=== PATIENT | female | born 1975 | race Caucasian/White ===

== ENCOUNTER 2018-07-03 13:53 | Emergency (ER) | payer BC ==
--- OUTSIDE RECORDS SUMMARY | 2018-07-03 13:55 | XMS REPORT | Continuity of Care Document ---
:1975 Author Organization Interface Problems Problem Status Onset Date Classification Date Comments Source Reported Medications Medication Details Route Status Patient Ordering Order Source Instructions Provider Date Allergies, Adverse Reactions, Alerts Substance Category Reaction Severity Reaction Status Date Comments Source type Reported Immunizations Immunization Date Given Site Status Last Updated Comments Source Results Order Results Value Reference Date Interpretation Comments Source Name Range Vital Signs Vital Sign Value Date Comments Source Encounters Location Location Encounter Encounter Reason Attending ADM DC Status Source Details Type Number For Provider Date Date Visit Outpatient [id number] [facility] 01/21 [facility] [place] Outpatient [id number] [place] 02/24 [facility] [place] Outpatient [id number] [place] 03/11 [facility] [place] Outpatient [id number] [place] 04/08 [facility] [place] Outpatient [id number] [place] 08/27 [facility] [place] Procedures Procedure Code Date Perfomer Comments Source
[2018-07-03 14:52] LABS: Urine Blood 2+ (NEG); Urine Glucose NEGATIVE (NEG); Urine Protein NEGATIVE (NEG); Urine Specific Gravity 1.025 (1.005-1.030); Urine pH 5.5 (5.0-7.0)
[2018-07-03 14:54] LABS: Absolute Lymphocytes (CBC) 2.7 K/uL (0.7-4.9); Absolute Monocytes 0.6 K/uL (0.1-1.3); Basophils % 1.1 % (0-1.3); Eosinophils % 5.4 % (0-4.4); Hematocrit 33.7 % (36.0-45.0); Lymphocytes % 27.1 % (15.3-44.8); MPV 8.4 fL (7.6-11.3); Monocytes % 5.6 % (3.3-12.3); RBC Red Blood Cell Count 4.27 M/uL (3.86-4.86)
[2018-07-03 15:01] LABS: Urine Amorphous Sediment TRACE /HPF (NONE SEEN); Urine Bacteria <20 /HPF (<20); Urine Culture Reflex Order NOT NEEDED; Urine RBC NONE SEEN /HPF (NONE SEEN)
[2018-07-03] MEDS ORDERED: FENTANYL CITR 100 MCG/2 ML ONE (15:03)
[2018-07-03 15:12] LABS: Albumin 3.9 g/dL (3.4-5.0); Bilirubin Total 0.3 mg/dL (0.2-1.0); Potassium 3.7 mmol/L (3.5-5.1); Protein, Total 7.9 g/dL (6.4-8.2)
--- NOTE | 2018-07-03 15:23 | RAD REPORT ---
EXAM DESCRIPTION: CT - Stone Protocol - 07/03/2018 3:08 pm CLINICAL HISTORY: Flank pain. FLANK PAIN COMPARISON: No comparisons TECHNIQUE: Axial images were obtained without oral or IV contrast. Lack of contrast limits solid org an and vascular assessment. The [id number] spans the entirety of the system partially obscuring uppermost abdomen and lung bases. Coronal reformatted images were obtained and reviewed. All CT scans are performed using dose optimization technique as appropriate and may include automated exposure control or mA/KV adjustment according to patient size. FINDINGS: The lower lung hendricks are clear. Cholecystectomy clips. Imaged portions of the liver and spleen show no suspicious findings on non-contrast imaging. The panc reas and adrenal glands are normal. No pathologic lymphadenopathy in the abdomen or pelvis. No urinary tract stones or obstructive uropathy. No bowel obstruction, free air, free fluid or abscess. Normal appendix noted. No significant bony abnormality. IMPRESSION: No urinary tract stones or obstructive uropathy.
--- NOTE | 2018-07-03 16:07 | EDPHYS ---
Physician Documentation [facility] Name: Georgia Eng Age: 43 yrs Sex: Female : 1975 Arrival Date: 07/03/2018 Time: 13:57 Bed 26 Private MD: Johnny Murdock R ED Physician Kali Mendoza HPI: 07/03 14:12 This 43 yrs old Female presents to ER via Ambulatory with complaints of jmm Possible Kidney Stone. 14:12 The patient complains of pain in the right flank. jmm 14:12 The pain radiates to the right lower quadrant. Onset: The symptoms/episode jmm began/occurred acutely, 2 week(s) ago. This is a 43 year old female with a history of kidney stones, anemia that presents to the ED with complaints of right flank pain with the most recent episode 5 days ago which had resolved then returned today. Patient has been taking flomax. Denies fever, denies vomiting. States the pain radiates to her right lower abdomen. . 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 - Social history:: Smoking status: Patient/guardian denies using tobacco. - Ebola Screening: : No symptoms or risks identified at this time. ROS: 14:12 Constitutional: Negative for fever, chills, and weight loss, Cardiovascular: Negative jmm for chest pain, palpitations, and edema, Respiratory: Negative for shortness of breath, cough, wheezing, and pleuritic chest pain. 14:12 Abdomen/GI: Positive for abdominal pain. 14:12 Back: Positive for flank pain. 14:12 All other systems are negative. Exam: 14:12 Head/Face: atraumatic. Eyes: EOMI, no conjunctival erythema appreciated ENT: Moist jmm Mucus Membranes Neck: Trachea midline, Supple Chest/axilla: Normal chest wall appearance and motion. Cardiovascular: Regular rate and rhythm. No edema appreciated Respiratory: Normal respirations, no respiratory distress appreciated 14:12 Constitutional: The patient appears in no acute distress, alert, awake. 14:12 Abdomen/GI: Inspection: abdomen appears normal, Bowel sounds: normal, Palpation: soft, nontender, in the right lower quadrant. 14:12 Back: CVA tenderness, that is mild, is noted on the right. 14:12 Musculoskeletal/extremity: ROM: intact in all extremities. 14:12 Skin: Appearance: Color: normal in color. 14:12 Neuro: Orientation: is normal, Mentation: is normal, Memory: is normal. 14:12 Psych: Behavior/mood is pleasant, cooperative. Vital Signs: 14:14 BP 141 / 71; Pulse 104; Resp 18; Temp 98.6(O); Pulse Ox 100% on R/A; Weight 122.47 kg; ph Height 6 ft. 2 in. (187.96 cm); Pain 8/10; 15:41 Pain 2/10; rv 15:54 BP 113 / 61; Pulse 73; Resp 18; Pulse Ox 98% on R/A; aj 14:14 Body Mass Index 34.67 (122.47 kg, 187.96 cm) ph MDM: 14:12 [facility] 16:06 Data reviewed: vital signs, nurses notes. Counseling: I had a detailed discussion with [facility] the patient and/or guardian regarding: the historical points, exam findings, and any diagnostic results supporting the discharge/admit diagnosis, lab results, radiology results, the need for outpatient follow up, to return to the emergency department if symptoms worsen or persist or if there are any questions or concerns that arise at home. 16:06 ED course: Patient advised to follow up with pcp and otherwise given early appendicitis [facility] return precautions. Patient understood and agrees with the plan of care. . 07/03 14:31 Order name: CBC with Diff; Complete Time: 15:14 [facility] 07/03 14:31 Order name: CMP; Complete Time: 15:14 [facility] 07/03 14:31 Order name: CT Stone Protocol; Complete Time: 15:26 [facility] 07/03 14:31 Order name: Urine Microscopic Only; Complete Time: 15:14 [facility] 07/03 14:48 Order name: Urine Dipstick--Ancillary (enter results); Complete Time: 15:14 07/03 14:48 Order name: Urine --Ancillary (enter results); Complete Time: 15:14 eb 07/03 14:31 Order name: Urine Dipstick-Ancillary (obtain specimen); Complete Time: 14:48 jama Administered Medications: 14:54 Drug: fentaNYL (PF) 50 mcg Route: IVP; Site: right antecubital; rv 15:41 Follow up: Pain 2/10 Adult; Response: Marked relief of symptoms; Pain is decreased rv Disposition: 07/03/18 16:06 Discharged to Home. Impression: Flank Pain, Hematuria, unspecified. - Condition is Stable. - Discharge Instructions: Flank Pain, Adult, Hematuria, Adult. - Medication Reconciliation Form, Thank You Letter, Antibiotic Education, Prescription Opioid Use form. - Follow up: Johnny Murdock MD; When: 2 - 3 days; Reason: Recheck today's complaints, Continuance of care, Re-evaluation by your physician. Addendum: 07/07/2018 08:21 Co-signature as Attending Physician, Kali Mendoza MD I agree with the assessment and c mcmillan plan of care. Signatures: Dispatcher [employer] EDNichelle White, RN Kali Danielson MD MD cha Mickail, Joel, PA PA Diya Dickson RN RN Yohan Singer RN RN rv Corrections: (The following items were deleted from the chart) 07/03 16:13 16:06 07/03/2018 16:06 Discharged to Home. Impression: Flank Pain; Hematuria, aj unspecified. Condition is Stable. Forms are Medication Reconciliation Form, Thank You Letter, Antibiotic Education, Prescription Opioid Use. Follow up: Johnny Murdock; When: 2 - 3 days; Reason: Recheck today's complaints, Continuance of care, Re-evaluation by your physician. jmm 18:56 18:55 ED course: Patient advised to follow up with pcp and otherwise given early jmm appendicitis return precautions. Patient understood and agrees with the plan of care. . jmm
--- NOTE | 2018-07-03 16:07 | ER ---
Nurse's Notes [facility] Name: Georgia Eng Age: 43 yrs Sex: Female : 1975 Arrival Date: 07/03/2018 Time: 13:57 Bed 26 Private MD: Johnny Murdock R Diagnosis: Flank Pain;Hematuria, unspecified Presentation: 07/03 14:12 Presenting complaint: Patient states: R low back and flank pain that began last night, ph radiates to RLQ, also reports nausea and dizziness, denies vomiting, states, " I noticed some dark brown blood when I pee too." Reports hx of kidney stones. Transition of care: patient was not received from another setting of care. Onset of symptoms was July 03, 2018. Risk Assessment: Do you want to hurt yourself or someone else? Patient reports no desire to harm self or others. Initial Sepsis Screen: Does the patient meet any 2 criteria? No. Patient's initial sepsis screen is negative. Does the patient have a suspected source of infection? No. Patient's initial sepsis screen is negative. Care prior to arrival: None. 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 - Social history:: Smoking status: Patient/guardian denies using tobacco. - Ebola Screening: : No symptoms or risks identified at this time. Screenin:37 Abuse screen: Denies threats or abuse. Denies injuries from another. Nutritional aj screening: No deficits noted. Tuberculosis screening: No symptoms or risk factors identified. Fall Risk None identified. Assessment: 14:36 General: Appears in no apparent distress. uncomfortable, Behavior is calm, cooperative. aj Pain: Complains of pain in posterior aspect of right lateral abdomen and anterior aspect of right lateral abdomen. Neuro: Level of Consciousness is awake, alert, obeys commands, Oriented to person, place, time, situation, Appropriate for age. Respiratory: Airway is patent Respiratory effort is even, unlabored, Respiratory pattern is regular, symmetrical. GI: Abdomen is non-distended, obese, Bowel sounds present X 4 quads. Abd is soft and non tender. : Reports burning with urination, pain in right flank(s). Derm: Skin is intact, is healthy with good turgor, Skin is pink, warm \\T\\ dry. normal. 16:11 Reassessment: Patient appears in no apparent distress at this time. No changes from aj previously documented assessment. Patient and/or family updated on plan of care and expected duration. Pain level reassessed. Patient is alert, oriented x 3, equal unlabored respirations, skin warm/dry/pink. Patient states feeling better. Patient states symptoms have improved. Vital Signs: 14:14 BP 141 / 71; Pulse 104; Resp 18; Temp 98.6(O); Pulse Ox 100% on R/A; Weight 122.47 kg; ph Height 6 ft. 2 in. (187.96 cm); Pain 8/10; 15:41 Pain 2/10; rv 15:54 BP 113 / 61; Pulse 73; Resp 18; Pulse Ox 98% on R/A; aj 14:14 Body Mass Index 34.67 (122.47 kg, 187.96 cm) ph ED Course: 13:57 Patient arrived in ED. rg4 13:57 Johnny Murdock MD is Private Physician. rg4 14:08 [facility] jm 14:09 Kali Mendoza MD is Attending Physician. [facility] 14:14 Triage completed. ph 14:16 Arm band placed on Patient placed in an exam room, on a stretcher. ph 14:33 Radiology exam delayed due to test not completed at this time. sw 14:36 Nichelle Quiles, RENETTA is Primary Nurse. aj 14:37 Patient has correct armband on for positive identification. aj 14:48 Initial lab(s) drawn, by me, sent to lab. Inserted saline lock: 22 gauge in right lt1 antecubital area, using aseptic technique. 14:48 Urine --Ancillary (enter results) Sent. lt1 14:48 Urine Dipstick--Ancillary (enter results) Sent. lt1 15:08 CT Stone Protocol In Process Unspecified. EDMS 16:06 Johnny Murdock MD is Referral Physician. shabnam 16:11 No provider procedures requiring assistance completed. IV discontinued, intact, aj bleeding controlled, No redness/swelling at site. Pressure dressing applied. Administered Medications: 14:54 Drug: fentaNYL (PF) 50 mcg Route: IVP; Site: right antecubital; rv 15:41 Follow up: Pain 2/10 Adult; Response: Marked relief of symptoms; Pain is decreased rv Outcome: 16:06 Discharge ordered by MD. jama 16:11 Discharged to home ambulatory, with friend. driss 16:11 Condition: good 16:11 Discharge instructions given to patient, Instructed on discharge instructions, follow up and referral plans. Demonstrated understanding of instructions, follow-up care. 16:13 Patient left the ED. driss Signatures: Dispatcher [employer] EDMS Nichelle Quiles, RN RN Colin Lee PA PA jmm Hall, Patricia RN RN Pam De La Cruz Rubi rg4 Yohan Walker RN RN Amy Motley lt1 Corrections: (The following items were deleted from the chart) 14:18 14:14 BP 141 / 71; Pulse 104bpm; Resp 18bpm; Pulse Ox 100% RA; 122.47 kg; Height 6 ft. ph 2 in.; BMI: 34.6; Pain 8/10; ph
[2018-07-03 16:21] VITALS: TEMP 98.6
[2018-07-03 16:23] VITALS: BP 113/61; O2SAT 98
== END 2018-07-03 16:13 | disposition home or self-care (01) ==
LOC: ER 13:53
DX: R31.9 Hematuria, unspecified (principal); Z88.5 Allergy status to narcotic agent; Z87.442 Personal history of urinary calculi
CPT/HCPCS: 36415; 74176; 76377; 80053; 81003; 81015; 81025; 85025; 96374; 99284; J3010

== ENCOUNTER 2019-02-26 22:21 | Emergency (ER) | payer BC ==
--- OUTSIDE RECORDS SUMMARY | 2019-02-26 22:24 | XMS REPORT ---
:1975 [facility] [address] [place] [address] Care Team Providers Name Role Phone Unavailable Unavailable Unavailable Payers Payer Name Policy Type Policy Number Effective Date Expiration Date Problems This patient has no known problems. Allergies, Adverse Reactions, Alerts Allergy Allergy Status Severity Reaction(s) Onset Inactive Treating Comments Name Type Date Date Clinician morphine RADHA Active SV 2019-01 00:00:0 0 Medications This patient has no known medications. Results Test Description Test Time Test Comments Text Results Atomic Results Result Comments GREY DUMAS 2019-01-14 RUN DATE: THAN 13:32:00 01/14/19 [facility] PAGE 1 RUN TIME: 174 PROLAPSE/IDALMIS Specimen Inquiry RUN USER: INTERFACE [facility]: [id number] [id number] AGE/SX: 43/F ROOM: [facility] RE01/13/19REG DR: Jamee Ham MD : [birth year] BED: A DIS: 01/14/19 STATUS: DIS Tere TLOC: SPEC #: [id number] RECD: 01/13/19-1229 STATUS: LORETA RE # : [id number] FANNY: 01/13/19- SUBM DR: Jamee Ham MD ENTERED: 01/13/19-1230 SP TYPE: UTERUSOTH OTHR DR: ORDERED: LEVEL V SURGICA CODES: [id number] - UTERUS, NOS PROCEDURES: LEVEL V SURGICA (Incomplete) TISSUES: UTERUS, NOS - UTERUS, CERVIX AND BILATERAL FALLOPIAN TUBES CLINICAL HISTORY 43 year old, menorrhagia, abnormal uterine bleeding (wpd) FINAL DIAGNOSIS Uterus, hysterectomy: cervix - mild chronic inflammation endometrium - interval pattern myometrium - no pathologic diagnosis right fallopian tube - status post tubal ligation - benign paratubal cysts left fallopian tube - status post tubal ligation - benign paratubal cysts CPT code(s): 08285 cds/wpd 01/14/19 GROSS DESCRIPTION ANATOMIC SOURCE OF TISSUE (per Requisition): Uterus, cervix, bilateral tubes The specimen is received in formalin in a container, labeled with the patient's name and designated "uterus, cervix, bilateral tubes". It consists of a 9.7 x 8.5 x 5.0 cm hysterectomy specimen with bilateral fallopian tubes with fimbriae attached. The uterus weighs 144 gm. The serosa is calvin, smooth, and glistening. The cervical external os measures 0.4 cm. The portio vaginalis measures 3.5 cm. Closet Builder sections are submitted in A1. The endometrium measures up to 0.3 cm. The myometrium measures up to 3.0 cm thick and contains no other lesions. Closet Builder sections are submitted in A2 and A3. CONTINUED ON NEXT PAGE RUN DATE: 01/14/19 [facility] PAGE 2 RUN TIME: 1743 Specimen Inquiry RUN USER: INTERFACE SPEC #: [id number] PATIENT: PAPI BROWN #[id number] (Continued) GROSS DESCRIPTION (Continued) The right fallopian tube with fimbria and healed previous tubal ligation measures 6 x 0.5 x 0.5 cm and contains paratubal cysts measuring up to 0.8 cm. The entire fimbria and one cross-section of the tube with the cysts are submitted in A4. The left fallopian tube with fimbria and healed previous tubal ligation measures 6 x 0.6 x 0.6 cm and contains paratubal cysts measuring up to 0.4 cm. The entire fimbria and one cross-section of the tube with the cysts are submitted in A5. hz/wpd 01/14/19 @ 0755 Signed MassielWilton 01/14/19 1332 END OF REPORT HGB HCT 2019-01-14 05:31:00 Test Item Value Reference Range Comments HEMOGLOBIN (test code=HGB) 8.7 g/dL 10.7-13.9 HEMATOCRIT (test code=HCT) 28.4 % 32.1-42.1 CHEMISTRY 7 [id number] 11:55:00 Test Item Value Reference Range Comments SODIUM (test code=NA) 140 mEq/L 135-145 POTASSIUM (test code=K) 4.2 mEq/L 3.5-5.0 CHLORIDE (test code=CL) 105 mEq/L 100-115 CARBON DIOXIDE (test code=CO2) 25 mEq/L 22-31 ANION GAP (test code=GAP) 13.90 10-20 GLUCOSE (test code=GLU) 86 mg/dL 65-110 BLOOD UREA NITROGEN (test code=BUN) 11 mg/dL 7-18 GLOMERULAR FILTRATION RATE (test code=GFR) 110 ml/min >60 CREATININE (test code=CREAT) 0.6 mg/dL 0.5-1.0 CALCIUM (test code=CA) 8.4 mg/dL 8.4-10.2 HCG SERUM [id number] 11:55:00 Test Item Value Reference Range Comments HCG SERUM QUAL (test code=HCGQL) CHEMISTRY 7 [id number] 11:55:00 Test Item Value Reference Range Comments SODIUM (test code=NA) 140 mEq/L 135-145 POTASSIUM (test code=K) 4.2 mEq/L 3.5-5.0 CHLORIDE (test code=CL) 105 mEq/L 100-115 CARBON DIOXIDE (test code=CO2) 25 mEq/L 22-31 ANION GAP (test code=GAP) 13.90 10-20 GLUCOSE (test code=GLU) 86 mg/dL 65-110 BLOOD UREA NITROGEN (test code=BUN) 11 mg/dL 7-18 GLOMERULAR FILTRATION RATE (test code=GFR) 110 ml/min >60 CREATININE (test code=CREAT) 0.6 mg/dL 0.5-1.0 CALCIUM (test code=CA) 8.4 mg/dL 8.4-10.2 HCG SERUM [id number] 11:55:00 Test Item Value Reference Range Comments HCG SERUM QUAL (test code=HCGQL) NEGATIVE CBC W/AUTO [id number] 11:50:00 Test Item Value Reference Range Comments WHITE BLOOD CELL (test code=WBC) 8.1 K/mm3 6.6-12.1 RED BLOOD CELL (test code=RBC) 4.13 M/mm3 3.45-5.01 HEMOGLOBIN (test code=HGB) 10.3 g/dL 10.7-13.9 HEMATOCRIT (test code=HCT) 33.5 % 32.1-42.1 MEAN CELL VOLUME (test code=MCV) 81 fL 84.1-94.8 MEAN CELL HGB (test code=MCH) 24.9 pg 27-35 MEAN CELL HGB CONCETRATION (test code=MCHC) 30.7 gm/dL 32.2-34.1 RED CELL DISTRIBUTION WIDTH (test code=RDW) 14.9 % 12.4-16.5 PLATELET COUNT (test code=PLT) 350 K/mm3 133-385 MEAN PLATELET VOLUME (test code=MPV) 11.1 fl 9.1-12.7 NEUTROPHIL % (test code=NT%) 63.9 % 56.5-79.4 LYMPHOCYTE % (test code=LY%) 26.3 % 14.3-34.3 MONOCYTE % (test code=MO%) 5.4 % 5.1-10.4 EOSINOPHIL % (test code=EO%) 3.0 % 0.1-3.0 BASOPHIL % (test code=BA%) 1.0 % 0.1-1.0 NEUTROPHIL # (test code=NT#) 5.2 K/mm3 LYMPHOCYTE # (test code=LY#) 2.1 K/mm3 MONOCYTE # (test code=MO#) 0.4 K/mm3 EOSINOPHIL # (test code=EO#) 0.24 K/mm3 BASOPHIL # (test code=BA#) 0.1 K/mm3 RBC MORPHOLOGY REQUIRED (test code=RBCM) NORMAL NORMAL PLATELET MORPHOLOGY REQUIRED (test code=PLTMR) NORMAL NORMAL - XR CHEST 2 [id number] 11:23:00 Patient Name: PAPI BROWN Unit No: [id number] EXAMS: CPT CODE: [id number] XR CHEST 2 V 72158 2 view chest x-ray performed January 11, 2019 1115 hours. COMPARISON: none. CLINICAL HISTORY: PREOP. Menorrhagia DISCUSSION: 2 views/ films of the chest are submitted. Lungs are clear bilaterally. Cardiomediastinal silhouette is normal. Osseous structures are within normal limits. IMPRESSION: Normal Chest X-ray. Electronically Signed by Kasey Ramos MD on 01/11 at 1123 Reported and signed by: Kasey Ramos MD CC: Randall Wilson; Jamee Ham MD Technologist: Hemalatha Baxter, Trnscrbd D/ (1123) NikaG Orig Print D/T: S: 01/11/2019 (1126) [facility] NAME: PAPI BROWN Radiology Department PHYS: Marlen Melchor MD [address] : 1975 AGE: 43 SEX: F [place], [place] [address] LOC: [place] PHONE #: [phone] EXAMDATE: 01/11/2019 STATUS: PRE SDC FAX #: RAD NO: Page 1 Signed Report
[2019-02-26 22:56] LABS: Absolute Lymphocytes (CBC) 1.9 K/uL (0.7-4.9); Basophils % 0.7 % (0-1.3); Hematocrit 38.1 % (36.0-45.0); Lymphocytes % 9.1 % (15.3-44.8); MPV 8.7 fL (7.6-11.3); RBC Red Blood Cell Count 5.03 M/uL (3.86-4.86)
[2019-02-26 23:09] LABS: Protime INR 0.97
[2019-02-26 23:15] LABS: ALT/SGPT 43 U/L (12-78); AST/SGOT 25 U/L (15-37); Albumin 4.2 g/dL (3.4-5.0); Alkaline Phosphatase 108 U/L (45-117); BUN Blood Urea Nitrogen 13 mg/dL (7-18); Bicarbonate 23 mmol/L (21-32); Bilirubin Direct < 0.1 mg/dL (0-0.2); Bilirubin Total 0.3 mg/dL (0.2-1.0); Glucose Level 121 mg/dL (74-106); NT PRO-BNP 17 pg/mL (<125); Potassium 3.9 mmol/L (3.5-5.1); Protein, Total 8.5 g/dL (6.4-8.2); Sodium Level 140 mmol/L (136-145); Troponin (Emerg Dept Use Only) < 0.02 ng/mL (0.0-0.045)
[2019-02-26] MEDS ORDERED: NA CHLORIDE 0.9% 2,000 ML ONE (23:20)
[2019-02-26] MEDS ORDERED: MEPERIDINE HCL 50 MG/ML ONE (23:20)
[2019-02-26] MEDS ORDERED: ONDANSETRON 4 MG/2 ML VIAL ONE (23:20)
[2019-02-27] MEDS ORDERED: MEPERIDINE HCL 50 MG/ML ONE (01:23)
[2019-02-27 01:32] LABS: Anisocytosis 1+; Blood Morphology Comment NOTED (NOT SEEN); Platelet Estimate ADEQ
[2019-02-27] MEDS ORDERED: PIPER/TAZO/NS 3.375gm 3.375 GM/100 ML BAG ONE (01:39)
--- NOTE | 2019-02-27 01:47 | ER ---
Nurse's Notes [facility] Name: Georgia Eng Age: 43 yrs Sex: Female : 1975 Arrival Date: 02/26/2019 Time: 22:22 Bed 4 Private MD: Diagnosis: Pneumoperitoneum. Possible vaginal cuff disruption. S/P Hysterectomy Presentation: 02/26 22:32 Presenting complaint: Patient states: Chest pain radiating to left shoulder that began lp1 after having intercourse tonight about 1900, patient states lower abdominal pain as well, worse to RLQ; Patient states hysterectomy on 01/13 at [facility]. Transition of care: patient was not received from another setting of care. Onset of symptoms was February 26, 2019. Risk Assessment: Do you want to hurt yourself or someone else? Patient reports no desire to harm self or others. Initial Sepsis Screen: Does the patient meet any 2 criteria? No. Patient's initial sepsis screen is negative. Does the patient have a suspected source of infection? No. Patient's initial sepsis screen is negative. Care prior to arrival: None. 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 - Social history:: Smoking status: Patient reports the use of cigarette tobacco products, smokes one pack cigarettes per day. - Ebola Screening: : No symptoms or risks identified at this time. Screenin:36 Abuse screen: Denies threats or abuse. Denies injuries from another. Nutritional lp1 screening: No deficits noted. Tuberculosis screening: No symptoms or risk factors identified. Fall Risk None identified. Assessment: 22:36 General: Appears uncomfortable, Behavior is restless. Pain: Complains of pain in chest ea and suprapubic area Pain radiates to left arm Pain began 2 hours ago. Neuro: Level of Consciousness is awake, alert, obeys commands, Oriented to person, place, time, situation. Cardiovascular: Patient's skin is warm and dry. Respiratory: Airway is patent Respiratory effort is even, unlabored, Respiratory pattern is regular, symmetrical. Derm: Skin is pink, warm \T\ dry. Musculoskeletal: Circulation, motion, and sensation intact. 23:37 Reassessment: Patient and/or family updated on plan of care and expected duration. Pain ea level reassessed. Patient is alert, oriented x 3, equal unlabored respirations, skin warm/dry/pink. 02/27 00:56 Reassessment: Patient and/or family updated on plan of care and expected duration. Pain ea level reassessed. Patient is alert, oriented x 3, equal unlabored respirations, skin warm/dry/pink. Awaiting CT results. 02:31 Reassessment: Report called to Cheryl JACKSON at [facility]. ea 03:50 Reassessment: Patient and/or family updated on plan of care and expected duration. Pain ea level reassessed. Patient is alert, oriented x 3, equal unlabored respirations, skin warm/dry/pink. EMS at facility for transfer, pt left ED via stretcher per EMS, pt tolerating well. Vital Signs: 02/26 22:33 BP 156 / 92; Pulse 116; Resp 18; Temp 98.4(O); Pulse Ox 100% on R/A; Weight 124.28 kg; lp1 Height 6 ft. 2 in. (187.96 cm); Pain 10/10; 23:37 BP 127 / 53; Pulse 53; Resp 18; Pulse Ox 98% on R/A; ea 02/27 00:57 BP 106 / 58; Pulse 60; Resp 16; Pulse Ox 99% on R/A; ea 02:35 BP 134 / 80; Pulse 68; Resp 20; Pulse Ox 99% on R/A; ea 02/26 22:33 Body Mass Index 35.18 (124.28 kg, 187.96 cm) lp1 ED Course: 02/26 22:22 Patient arrived in ED. cl3 22:33 Triage completed. lp1 22:33 Arm band placed on. lp1 22:36 Sarah Reynaga, RENETTA is Primary Nurse. ea 22:36 Patient has correct armband on for positive identification. Placed in gown. Cardiac lp1 monitor on. Pulse ox on. NIBP on. 22:37 Patient maintains SpO2 saturation greater than 95% on room air. ea 22:38 Inserted saline lock: 20 gauge in right antecubital area, using aseptic technique. ea Blood collected. 22:55 XRAY Chest (1 view) In Process Unspecified. EDMS 23:07 Gutierrez Blackburn MD is Attending Physician. pkl 02/27 00:30 CT Abd/Pelvis - IV Contrast Only In Process Unspecified. EDMS 02:35 No provider procedures requiring assistance completed. Patient transferred, IV remains ea in place. Administered Medications: 02/26 23:20 Drug: Zofran 4 mg Route: IVP; Site: left antecubital; ea 02/27 01:53 Follow up: Response: No adverse reaction ea 02/26 23:26 Drug: NS 0.9% 1000 ml Route: IV; Rate: 1000 ml; Site: left antecubital; ea 23:26 Drug: NS 0.9% 1000 ml Route: IV; Rate: 125 ml/hr; Site: left antecubital; ea 23:26 Drug: Demerol 50 mg Route: IVP; Site: left antecubital; ea 02/27 01:52 Follow up: Response: No adverse reaction ea 01:24 Drug: Demerol 50 mg Route: IVP; Site: left antecubital; ea 01:53 Follow up: Response: No adverse reaction; Pain is decreased; RASS: Alert and Calm (0) ea 01:52 Drug: Zosyn 3.375 grams Route: IVPB; Infused Over: 60 mins; Site: left antecubital; ea Outcome: 01:46 ER care complete, transfer ordered by . pkl 03:50 Transferred by ground EMS [facility] Transfer form completed. X-rays ea sent w/ patient. 03:50 Condition: stable 03:50 Instructed on the need for transfer. 03:56 Patient left the ED. ea Signatures: Dispatcher [employer] EDMS Gutierrez Blackburn MD MD pkl Pena, Laura RN RN lp1 Sarah Reynaga RN RN ea Lewis, Charde cl3
--- NOTE | 2019-02-27 01:48 | EDPHYS ---
Physician Documentation [facility] Name: Georgia Eng Age: 43 yrs Sex: Female : 1975 Arrival Date: 02/26/2019 Time: 22:22 Bed 4 Private MD: ED Physician Gutierrez Blackburn HPI: 02/26 23:19 This 43 yrs old Female presents to ER via Wheelchair with complaints of Chest pkl Pain. 23:19 The patient presents with abdominal pain right lower quadrant. Onset: The pkl symptoms/episode began/occurred just prior to arrival, 4 hour(s) ago. The symptoms do not radiate. Associated signs and symptoms: Pertinent positives: chest pain, radiating to left shoulder. Patient said she had right lower quadrant pain while sexual intercourse tonight at about 1900. 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 - Social history:: Smoking status: Patient reports the use of cigarette tobacco products, smokes one pack cigarettes per day. - Ebola Screening: : No symptoms or risks identified at this time. ROS: 23:19 Eyes: Negative for injury, pain, redness, and discharge, ENT: Negative for injury, pkl pain, and discharge, Neck: Negative for injury, pain, and swelling. 23:19 Cardiovascular: Positive for chest pain. 23:19 Respiratory: Negative for cough, shortness of breath. 23:19 Abdomen/GI: Positive for abdominal pain, of the right lower quadrant. 23:19 Back: Negative for acute changes. 23:19 : Negative for injury or acute deformity. 23:19 MS/extremity: Negative for acute changes. 23:19 Skin: Negative for rash. 23:19 Neuro: Negative for altered mental status, loss of consciousness. Exam: 23:19 Head/Face: Normocephalic, atraumatic. Eyes: Pupils equal round and reactive to light, pkl extra-ocular motions intact. Lids and lashes normal. Conjunctiva and sclera are non-icteric and not injected. Cornea within normal limits. Periorbital areas with no swelling, redness, or edema. ENT: Nares patent. No nasal discharge, no septal abnormalities noted. Tympanic membranes are normal and external auditory canals are clear. Oropharynx with no redness, swelling, or masses, exudates, or evidence of obstruction, uvula midline. Mucous membranes moist. Neck: Trachea midline, no thyromegaly or masses palpated, and no cervical lymphadenopathy. Supple, full range of motion without nuchal rigidity, or vertebral point tenderness. No Meningismus. Chest/axilla: Normal chest wall appearance and motion. Nontender with no deformity. No lesions are appreciated. Cardiovascular: Regular rate and rhythm with a normal S1 and S2. No gallops, murmurs, or rubs. Normal PMI, no JVD. No pulse deficits. Respiratory: Lungs have equal breath sounds bilaterally, clear to auscultation and percussion. No rales, rhonchi or wheezes noted. No increased work of breathing, no retractions or nasal flaring. 23:19 Abdomen/GI: Bowel sounds: normal, Palpation: soft, moderate abdominal tenderness, in the right lower quadrant. 23:19 Back: Exam negative for acute changes. 23:19 : Exam negative for acute changes. 23:19 Musculoskeletal/extremity: Exam is negative for acute changes. 23:19 Skin: Exam negative for rash. 23:19 Neuro: Orientation: is normal, Mentation: is normal, Cranial nerves: grossly normal, Motor: is normal. Vital Signs: 22:33 BP 156 / 92; Pulse 116; Resp 18; Temp 98.4(O); Pulse Ox 100% on R/A; Weight 124.28 kg; lp1 Height 6 ft. 2 in. (187.96 cm); Pain 10/10; 23:37 BP 127 / 53; Pulse 53; Resp 18; Pulse Ox 98% on R/A; ea 02/27 00:57 BP 106 / 58; Pulse 60; Resp 16; Pulse Ox 99% on R/A; ea 02:35 BP 134 / 80; Pulse 68; Resp 20; Pulse Ox 99% on R/A; ea 02/26 22:33 Body Mass Index 35.18 (124.28 kg, 187.96 cm) lp1 MDM: 02/26 23:07 Patient medically screened. pkl 02/27 01:42 Data reviewed: vital signs, nurses notes, lab test result(s), radiologic studies, CT pkl scan. ED course: Talked to Dr. Mcpherson, transfer to [facility]. 02/26 22:36 Order name: Basic Metabolic Panel; Complete Time: 23:16 02/26 22:36 Order name: CBC with Diff; Complete Time: 06:33 02/26 22:36 Order name: LFT's; Complete Time: 23:16 02/26 22:36 Order name: Magnesium; Complete Time: 23:16 02/26 22:36 Order name: NT PRO-BNP; Complete Time: 23:16 02/26 22:36 Order name: PT-INR; Complete Time: 23:16 02/26 22:36 Order name: Troponin (emerg Dept Use Only); Complete Time: 23:16 02/26 22:36 Order name: XRAY Chest (1 view) 02/26 23:15 Order name: Lipase; Complete Time: 01:03 pkl 02/26 23:18 Order name: CT Abd[facility]Pel[facility] 02/27 01:09 Order name: Manual Differential; Complete Time: 06:33 EDMS 02/26 22:36 Order name: EKG; Complete Time: 22:37 02/26 22:36 Order name: Cardiac monitoring; Complete Time: 22:38 02/26 22:36 Order name: EKG - Nurse/Tech; Complete Time: 22:38 02/26 22:36 Order name: IV Saline Lock; Complete Time: 22:38 02/26 22:36 Order name: Labs collected and sent; Complete Time: 22:43 02/26 22:36 Order name: O2 Per Protocol; Complete Time: 22:43 02/26 22:36 Order name: O2 Sat Monitoring; Complete Time: 22:43 02/27 02:11 Order name: Misc. Order: urination assist; Complete Time: 02:19 jmm Administered Medications: 02/26 23:20 Drug: Zofran 4 mg Route: IVP; Site: left antecubital; 02/27 01:53 Follow up: Response: No adverse reaction 02/26 23:26 Drug: NS 0.9% 1000 ml Route: IV; Rate: 1000 ml; Site: left antecubital; ea 23: Drug: NS 0.9% 1000 ml Route: IV; Rate: 125 ml/hr; Site: left antecubital; ea : Drug: Demerol 50 mg Route: IVP; Site: left antecubital; ea 02/27 01:52 Follow up: Response: No adverse reaction ea :24 Drug: Demerol 50 mg Route: IVP; Site: left antecubital; ea 01:53 Follow up: Response: No adverse reaction; Pain is decreased; RASS: Alert and Calm (0) ea :52 Drug: Zosyn 3.375 grams Route: IVPB; Infused Over: 60 mins; Site: left antecubital; ea Disposition: 02/27/19 01:46 Transfer ordered to [facility]. Diagnosis is Pneumoperitoneum. Possible vaginal cuff disruption. S/P Hysterectomy. - Reason for transfer: Higher level of care. - Accepting physician is Dr. Mcpherson . - Condition is Stable. - Problem is new. - Symptoms are unchanged. Signatures: Dispatcher [employer] EDMS Gutierrez Blackburn MD MD pkl Colin Bishop PA PA jmm Pena, Laura, RN RN lpSarah Harvey RN RN ea Corrections: (The following items were deleted from the chart) 03:56 01:46 02/27/2019 01:46 Transfer ordered to [facility]. Diagnosis is ea Pneumoperitoneum. Possible vaginal cuff disruption. S/P Hysterectomy. Reason for transfer: Higher level of care. Accepting physician is Dr. Mcpherson . Condition is Stable. Problem is new. Symptoms are unchanged. pkl
[2019-02-27 04:11] VITALS: TEMP 98.4
[2019-02-27 04:13] VITALS: O2SAT 99
[2019-02-27 04:15] VITALS: BP 134/80
--- NOTE | 2019-02-27 07:39 | RAD REPORT ---
EXAM DESCRIPTION: Gurmeet Single View02/26/2019 10:56 pm CLINICAL HISTORY: Chest pain COMPARISON: 2016 FINDINGS: The lungs appear clear of acute infiltrate. The heart is normal size. Free air is seen beneath the diaphragm IMPRESSION: Pneumoperitoneum. The patient had a CT scan after this chest x-ray which describes the differential for this patient
--- NOTE | 2019-02-28 14:02 | EKG ---
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
--- NOTE | 2019-03-01 16:04 | RAD REPORT ---
EXAM DESCRIPTION: CT - Abdomen Pelvis W Contrast - 02/27/2019 12:30 am COMPARISON: CT abdomen and pelvis July 03, 2018 CLINICAL HISTORY: Abdominal pain, chest pain radiating to left shoulder after recent intercourse TECHNIQUE: Multiple helical axial images were obtained through the abdomen and pelvis using intraven ous contrast. Coronal and sagittal reformatted images were obtained. All CT scans at this facility use dose modulation, iterative reconstruction, and/or weight-based dosi ng when appropriate to reduce radiation dose to as low as reasonably achievable. FINDINGS: Lung bases: Appear unremarkable. Liver: Low-attenuation is present suggestive of fatty changes. Gallbladder/biliary: Post cholecystectomy changes are present. No significant biliary ductal dilatati on. Pancreas: Unremarkable. No evidence of ductal enlargement. Spleen: Appears borderline enlarged. Adrenals: Unremarkable. Kidneys and ureters: No evidence of hydronephrosis. Normal enhancement. Bladder: Unremarkable. Pelvic organs: Post hysterectomy changes demonstrated. Possible vaginal cuff disruption (series 602, image 114). Bowel: No evidence of bowel obstruction. No bowel wall thickening. Appendix appears unremarkable. Vasculature: Unremarkable. Peritoneum: There is a small amount of scattered free intraperitoneal air including near the vaginal cuff. There is a small amount of free fluid in the pelvis with mild associated peritoneal thickening. Mild fat stranding in the pelvis noted. Lymph nodes: Unremarkable. Soft tissues: Unremarkable. Bones: Unremarkable. IMPRESSION: Pneumoperitoneum, likely vaginal in origin with with possible vaginal cuff disruption. T here is associated stranding and trace fluid in the pelvis with associated pelvic peritoneal thickeni ng which may be inflammatory in nature. THIS REPORT CONTAINS FINDINGS THAT MAY BE CRITICAL TO PATIENT CARE: The findings were verbally discu ssed via telephone conference with Dr. Blackburn by Dr. Shaw at a 100 hours central time on February 27, 2019 . The results were acknowledged and understood. Electronically signed by: Michael Shaw MD 02/27/2019 1:11 AM DIGITAL CONTROLS TECHNICAL OFFICER Due to temporary technical issues with the PACS/Fluency reporting system, reports are being signed by the in house radiologist as a courtesy to ensure prompt reporting. The interpreting radiologist is f ully responsible for the content of the report.
== END 2019-02-27 03:56 ==
LOC: ER 22:21
DX: K66.8 Other specified disorders of peritoneum (principal); Z90.710 Acquired absence of both cervix and uterus; R07.9 Chest pain, unspecified; F17.210 Nicotine dependence, cigarettes, uncomplicated; Z88.5 Allergy status to narcotic agent
CPT/HCPCS: 93005; 85025; 80048; 36415; 83735; 85610; 80076; 84484; 83690; 83880; 74177; 71045; 96375; 96374; 99285; Q9967; J2543; J2175 ×2; J7030; J2405